=== PATIENT | female | born 1960 | race Caucasian/White ===

== ENCOUNTER 2017-10-19 06:27 | Day surgery (SDC) | payer OTHER ==
[2017-10-19] MEDS ORDERED: TOBRAMYCIN/DEXAMETH 2.5 ML OPH (06:59)
[2017-10-19] MEDS ORDERED: SOD CHLORIDE 0.9% 1,000 ML IV (07:00)
[2017-10-19] MEDS ORDERED: TETRACAINE 0.5% 4 ML OPH (07:00)
[2017-10-19] MEDS ORDERED: BUPIVACAINE 0.75% (MPF) 10 ML INJ (07:05)
[2017-10-19] MEDS: PHENYLephrine 2.5% 15 ML OPH OPER (07:19)
[2017-10-19] MEDS: MOXIFLOXACIN 0.5% 3 ML OPH OPER (07:19)
[2017-10-19] MEDS: PREDNISOLONE ACET 1% 5 ML OPH OPER (07:20)
[2017-10-19] MEDS: TROPICAMIDE 1% 3 ML OPH OPER (07:20)
[2017-10-19] MEDS: PROPARACAINE 0.5% 15 ML OPH OPER (07:20)
[2017-10-19] MEDS ORDERED: EPINEPHrine 1 MG INJ (08:24)
[2017-10-19] MEDS ORDERED: PROPOFOL 20 ML (08:36)
[2017-10-19] MEDS ORDERED: LIDOCAINE 2% (SDV) 5 ML INJ (08:36)
== END 2017-10-19 10:30 | disposition home or self-care (01) ==
LOC: SDS 06:27
DX: H25.11 Age-related nuclear cataract, right eye (principal); E11.9 Type 2 diabetes mellitus without complications
CPT/HCPCS: 66984; 82962